=== PATIENT | male | born 1940 | race Caucasian/White ===

== ENCOUNTER 2024-05-12 16:08 | Observation (INO) | payer OTHER ==
[~2024-05-12] VITALS: Ht 177.8 cm; Wt 90.7 kg
[~2024-05-12 16:08] MED LIST: ASPI325 PO; ASPI81EC PO; CENTRUM SILVER1 EAC2 PO; LISINOPRIL PO; LOSA50 PO; METFORMIN HCL1000 MG PO; NIAC500 PO; OMEG1CAP30 PO; Pravastatin Sod40 MG PO; SIMV10 PO; VIT1CAPS12
[2024-05-12] MEDS ORDERED: FUROSEMIDE20 MG PO (16:34)
[2024-05-12] MEDS ORDERED: KLOR-CON 1010 ME9 PO (16:35)
[2024-05-12] MEDS ORDERED: EZET10 PO (16:37)
[2024-05-12] MEDS ORDERED: ELIQUIS2.5 MG PO (16:37)
[2024-05-12 16:53] LABS: BASOPHILS ABSOLUTE AUTO 0.06 K/mm3 (0.00-0.23); BASOPHILS PERCENT AUTO 1 % (0-2); EOSINOPHILS ABSOLUTE AUTO 0.51 K/mm3 (0.00-0.68); EOSINOPHILS PERCENT AUTO 5 % (0-6); Hematocrit 40.3 % (37.0-53.0); Hemoglobin 12.9 g/dL (13.5-17.5); IMMATURE GRAN ABSOLUTE AUTO 0.03 K/mm3 (0.00-0.10); IMMATURE GRAN PERCENT AUTO 0 % (0-1); LYMPHOCYTES ABSOLUTE AUTO 3.42 K/mm3 (0.84-5.20); LYMPHOCYTES PERCENT AUTO 32 % (21-46); MONOCYTES ABSOLUTE AUTO 0.82 K/mm3 (0.16-1.47); MONOCYTES PERCENT AUTO 8 % (4-13); Mean Corpuscular HGB 31.6 pg (26.0-34.0); Mean Corpuscular Volume 99 fL (80-100); Mean Platelet Volume 11.5 fL (9.1-12.4); NEUTROPHILS PERCENT AUTO 54 % (41-73); Platelet Count 268 K/mm3 (150-400); RDW Coefficient Variation 14.6 % (11.7-14.2); RDW Standard Deviation 52.6 fL (35.1-46.3); Red Blood Cell Count 4.08 M/mm3 (4.30-5.90); White Blood Cell Count 10.54 K/mm3 (4.00-11.30)
[2024-05-12 17:24] LABS: Albumin, Blood 3.5 g/dL (3.4-5.0); Albumin/Globulin Ratio 0.9 (0.8-1.8); Bilirubin, Total 0.4 mg/dL (0.1-1.0); Bun/Creatinine Ratio 27.1 (12.0-20.0); Calcium, Blood 9.6 mg/dL (8.5-10.1); Creatinine, Blood 1.44 mg/dL (0.60-1.20); Globulin, Blood 3.9 g/dL (2.2-4.0); Potassium, Blood 4.7 mmol/L (3.5-5.5); Total Protein, Blood 7.4 g/dL (6.4-8.2)
[2024-05-12] MEDS ORDERED: Ondansetron 4 MG TAB PO PRN (19:35)
[2024-05-12] MEDS ORDERED: FLU VACC TS2024-25(6MOS UP)/PF 45 MCG/0.5 ML SYRINGE IM SCH (19:35)
[2024-05-12 21:50] LABS: C-REACTIVE PROTEIN, EXT RANGE 0.74 mg/dL (0.000-0.300)
[2024-05-12 21:59] LABS: Thyroid Stimulating Hormone 2.01 uIU/mL (0.360-4.800)
[2024-05-12] MEDS ORDERED: Insulin Regular 100 UNIT/ML 10ML Vial SC SCH (22:00)
[2024-05-12 22:43] VITALS: BP 145/66
--- NOTE | 2024-05-12 22:58 | NUR ---
PATIENT IS A NEW ADMIT FROM THE ED. ALERT ORIENTED AND SBA FROM W/C TO [facility]. DENIES CHEST PAIN AND N/V. SOB WITH EXERTION. STATING 97% ON ROOM AIR ON CONTINUOUS PULSE OXIMETRY. HR CORRINE IN THE THIRTIES (32-42) AT THIS TIME AND SAME IN ED PER ED RN. ASYMPTOMATIC. CB. ORIENTED TO ROOM AND CALL LIGHT SYSTEM. REPORTS WANTS TO WATCH TV AFTER ASSESSMENT. WCTM.
--- NOTE | 2024-05-13 00:46 | NUR ---
YARD SPOTTER REPORTS PATIENT AFLUTTER 35-38 CURRENTLY AND DROPPED TO 32 AND BACK UP. WILL CALL IF SUSTAINED < HR 32. WCTM.
--- NOTE | 2024-05-13 00:47 | NUR ---
CARDIOLOGY CONSULT CALLED INTO ANSWERING SERVICE. DR EZ PATEL ([facility]) ADVERTISING REP FOR MORNING.
--- NOTE | 2024-05-13 04:13 | NUR ---
SHIFT SUMMARY PATIENT HR DROP TO 27 X ONE FOR 1-2 SEC AND BACK TO MID 30'S PER PATIENT ACCOUNT REPRESENTATIVE. TELE MONITOR REPORTS AFLUTTER 32-42 WITH MOSTLY MID THIRTIES HR. STATING 94-97% ROOM AIR ON CONTINUOUS PULSE OXIMETRY. DENIES CHEST PAIN AND N/V. SOB WITH EXERTION. AFEBRILE. SLEPT AFTER ASSESSMENT AND SOME TV. CALL LIGHT IN REACH. BED IN LOWEST POSITION. WILL CONTINUE TO MONITOR UNTIL DAY SHIFT NURSE ASSUMES CARE.
[2024-05-13 05:04] LABS: BASOPHILS ABSOLUTE AUTO 0.07 K/mm3 (0.00-0.23); BASOPHILS PERCENT AUTO 1 % (0-2); EOSINOPHILS ABSOLUTE AUTO 0.51 K/mm3 (0.00-0.68); EOSINOPHILS PERCENT AUTO 6 % (0-6); Hematocrit 34.9 % (37.0-53.0); Hemoglobin 11.4 g/dL (13.5-17.5); IMMATURE GRAN ABSOLUTE AUTO 0.02 K/mm3 (0.00-0.10); IMMATURE GRAN PERCENT AUTO 0 % (0-1); LYMPHOCYTES ABSOLUTE AUTO 2.59 K/mm3 (0.84-5.20); LYMPHOCYTES PERCENT AUTO 30 % (21-46); MONOCYTES ABSOLUTE AUTO 0.78 K/mm3 (0.16-1.47); MONOCYTES PERCENT AUTO 9 % (4-13); Mean Corpuscular HGB 31.9 pg (26.0-34.0); Mean Corpuscular HGB Conc 32.7 g/dL (31.5-36.5); Mean Corpuscular Volume 98 fL (80-100); Mean Platelet Volume 11.4 fL (9.1-12.4); NEUTROPHILS ABSOLUTE AUTO 4.61 K/mm3 (1.96-9.15); NEUTROPHILS PERCENT AUTO 54 % (41-73); Platelet Count 223 K/mm3 (150-400); RDW Coefficient Variation 14.6 % (11.7-14.2); RDW Standard Deviation 52.8 fL (35.1-46.3); Red Blood Cell Count 3.57 M/mm3 (4.30-5.90); White Blood Cell Count 8.58 K/mm3 (4.00-11.30)
[2024-05-13 05:08] VITALS: BP 115/67
[2024-05-13 05:33] LABS: Albumin, Blood 2.9 g/dL (3.4-5.0); Albumin/Globulin Ratio 0.9 (0.8-1.8); Bilirubin, Total 0.4 mg/dL (0.1-1.0); Bun/Creatinine Ratio 27.9 (12.0-20.0); Calcium, Blood 8.9 mg/dL (8.5-10.1); Creatinine, Blood 1.36 mg/dL (0.60-1.20); Globulin, Blood 3.1 g/dL (2.2-4.0); Potassium, Blood 4.2 mmol/L (3.5-5.5)
--- NOTE | 2024-05-13 05:45 | NUR ---
PILING SETTER REPORTS POSSIBLE RUN OF V-TACH BUT NOT SURE WITH A FEW LEADS OFF. LEADS REPLACED. BACK TO A-FLUTTER 38. WCTM.
--- NOTE | 2024-05-13 06:07 | NUR ---
TEA BAG MACHINE TENDER REPORTS A-FLUTTER 30 FOR 20 SECONDS AND BACK TO A-FLUTTER 37. PATIENT RESTING IN BED. ASYMPTOMATIC. TM.
[2024-05-13 07:33] VITALS: BP 123/70
[2024-05-13] MEDS ORDERED: Apixaban 5 MG Tab PO SCH ×2 (09:00→21:00)
[2024-05-13] MEDS ORDERED: Ezetimibe 10 MG Tab PO SCH (09:00)
[2024-05-13] MEDS ORDERED: Aspirin 81 MG TabEC PO SCH (09:00)
[2024-05-13] MEDS ORDERED: Enoxaparin 40 MG/0.4 ML SYR SC SCH (09:00)
[2024-05-13] MEDS ORDERED: Losartan Potassium 50 MG Tab PO SCH (09:00)
[2024-05-13] MEDS ORDERED: Apixaban 5 MG Tab PO ONE (10:25)
[2024-05-13 15:08] VITALS: BP 142/81
--- NOTE | 2024-05-13 18:23 | NUR ---
SHIFT SUMMARY PT CONT LEVEL OF CARE. PT NOTED TO BE A&O X4 AND SBA TO RESTROOM. PT CONT WITH TELE NOTED TO BE A FLUTTER WITH HR IN MID 30S. PT NOTED TO BE ASYMPTOMATIC AND DENIES CP, DIZZINESS. PT DOES STATE THAT HE IS SOB WITH EXERTION BUT ITS BEEN GOING ON FOR SEVERAL YEARS. CARDIOLOIST NOTED TO SEE PT THIS SHIFT. PT IS TO HAVE A 2 DAY STRESS TEST COMPLETED. PT HAS COMPLETED DAY ONE BUT WILL FINISH WITH DAY 2 TOMORROW AND IS TO BE NPO AFTER MIDNIGHT BUT HOLD PT BREAKFAST TRAY HE WILL NEED TO EAT AFTER BEING SEEN IN THE [facility] PT IS ALLOWED TO DRINK WATER ONLY AFTER MIDNIGHT. DIRECTOR OPERATING STATED THAT PT WILL LIKELY NEED A PACEMAKER BUT IT CAN BE PLACED OUTPATIENT PT IS ASYMPTOMATIC AT THIS TIME. HE WILL ALSO POSSIBLE DC ON ZIO PATCH.
[2024-05-13 19:37] VITALS: BP 158/76
[2024-05-14 00:13] VITALS: BP 122/62
[2024-05-14 04:59] LABS: BASOPHILS ABSOLUTE AUTO 0.06 K/mm3 (0.00-0.23); BASOPHILS PERCENT AUTO 1 % (0-2); EOSINOPHILS ABSOLUTE AUTO 0.68 K/mm3 (0.00-0.68); EOSINOPHILS PERCENT AUTO 6 % (0-6); Hemoglobin 12.7 g/dL (13.5-17.5); IMMATURE GRAN ABSOLUTE AUTO 0.02 K/mm3 (0.00-0.10); IMMATURE GRAN PERCENT AUTO 0 % (0-1); LYMPHOCYTES ABSOLUTE AUTO 3.55 K/mm3 (0.84-5.20); LYMPHOCYTES PERCENT AUTO 33 % (21-46); MONOCYTES ABSOLUTE AUTO 0.85 K/mm3 (0.16-1.47); MONOCYTES PERCENT AUTO 8 % (4-13); Mean Corpuscular HGB 31.4 pg (26.0-34.0); Mean Corpuscular HGB Conc 32.6 g/dL (31.5-36.5); Mean Corpuscular Volume 97 fL (80-100); Mean Platelet Volume 11.3 fL (9.1-12.4); NEUTROPHILS ABSOLUTE AUTO 5.64 K/mm3 (1.96-9.15); NEUTROPHILS PERCENT AUTO 52 % (41-73); Platelet Count 247 K/mm3 (150-400); RDW Coefficient Variation 14.6 % (11.7-14.2); RDW Standard Deviation 51.1 fL (35.1-46.3); Red Blood Cell Count 4.04 M/mm3 (4.30-5.90)
[2024-05-14 05:13] VITALS: BP 131/71
[2024-05-14 05:18] LABS: Bun/Creatinine Ratio 27.5 (12.0-20.0); Calcium, Blood 9.2 mg/dL (8.5-10.1); Creatinine, Blood 1.31 mg/dL (0.60-1.20); Magnesium, Blood 2.2 mg/dL (1.6-2.4); Potassium, Blood 4.3 mmol/L (3.5-5.5)
--- NOTE | 2024-05-14 05:42 | NUR ---
Shift Summary Pt NPO since 0000 in anticipation for stress test today. On tele running aflutter 30-50. He did have a 15 run beat of vtach around 0500 while in bed, asymptomatic. 1 SBA to the BR. No c/o of discomfort or pain. AOx4, slept well t/o most of the night.
[2024-05-14] MEDS ORDERED: Regadenoson 0.4 MG/5 ML SYRINGE ONE (07:13)
[2024-05-14 07:33] VITALS: BP 128/66
[2024-05-14 11:22] VITALS: BP 121/70
--- NOTE | 2024-05-14 15:24 | NUR ---
PT DISCHARGED 1330 WITH DC INSTRUCTIONS. ZIO PATCH PLACED PRIOR TO DC. PT'S HR REMAINS 36-48 A FLUTTER, DENIES ANY DIZZINESS THIS SHIFT. COMPLETED 2ND PORTION OF STRESS TEST- SHOWING NO ACUTE CARDIAC CONCERNS, PT TO FOLLOWUP WITH CARDIC OUTPATIIENT TO ADDRESS HEART RATE. WHEELCHAIR OUT TO CAR FOR DC
[2024-05-16 23:22] LABS: ALBUMIN 3.46 g/dL (3.75-5.01); ALPHA 1 GLOBULIN 0.32 g/dL (0.19-0.46); ALPHA 2 GLOBULIN 0.76 g/dL (0.48-1.05); BETA GLOBULIN 0.76 g/dL (0.48-1.10); GAMMA 0.91 g/dL (0.62-1.51); IMMUNOFIXATION IFE Done; TOTAL PROTEIN, SERUM 6.2 g/dL (6.3-8.2)
== END 2024-05-14 13:32 | disposition home or self-care (01) ==
LOC: ER 16:08 → SURS 16:09 → MEDS 16:09
PROVIDERS: Emergency Medicine; Student in an Organized Health Care Education/Training Program; ADMIT Student in an Organized Health Care Education/Training Program
DX: R00.1 Bradycardia, unspecified (principal); E78.1 Pure hyperglyceridemia; I48.92 Unspecified atrial flutter; I13.0 Hypertensive heart and chronic kidney disease with heart failure and stage 1 through stage 4 chronic kidney disease, or unspecified chronic kidney disease; E11.22 Type 2 diabetes mellitus with diabetic chronic kidney disease; N18.30 Chronic kidney disease, stage 3 unspecified; I50.32 Chronic diastolic (congestive) heart failure; M25.462 Effusion, left knee; J98.4 Other disorders of lung; Z85.46 Personal history of malignant neoplasm of prostate; Z79.899 Other long term (current) drug therapy; Z79.01 Long term (current) use of anticoagulants; Z79.84 Long term (current) use of oral hypoglycemic drugs
CPT/HCPCS: 36415; 71045; 73560-LT; 78452; 80048; 80053; 82947; 83735; 83880; 84145; 84155; 84165; 84443; 84484; 85025; 86140; 86334; 93005; 93010; 93017; 93246; 99285-25; A9270; A9500; G0378; J1815; J2785

== ENCOUNTER 2024-06-17 14:11 | Emergency (ER) | payer OTHER ==
[~2024-06-17] VITALS: Ht 177.8 cm; Wt 90.7 kg
[~2024-06-17 14:11] MED LIST changes: +ELIQUIS2.5 MG PO; +EZET10 PO; +FUROSEMIDE20 MG PO; +KLOR-CON 1010 ME9 PO
[2024-06-17 14:59] LABS: BASOPHILS ABSOLUTE AUTO 0.07 K/mm3 (0.00-0.23); BASOPHILS PERCENT AUTO 1 % (0-2); EOSINOPHILS ABSOLUTE AUTO 0.23 K/mm3 (0.00-0.68); EOSINOPHILS PERCENT AUTO 3 % (0-6); Hematocrit 39.7 % (37.0-53.0); Hemoglobin 12.8 g/dL (13.5-17.5); IMMATURE GRAN ABSOLUTE AUTO 0.02 K/mm3 (0.00-0.10); IMMATURE GRAN PERCENT AUTO 0 % (0-1); LYMPHOCYTES ABSOLUTE AUTO 2.06 K/mm3 (0.84-5.20); LYMPHOCYTES PERCENT AUTO 25 % (21-46); MONOCYTES ABSOLUTE AUTO 0.73 K/mm3 (0.16-1.47); MONOCYTES PERCENT AUTO 9 % (4-13); Mean Corpuscular HGB 31.6 pg (26.0-34.0); Mean Corpuscular HGB Conc 32.2 g/dL (31.5-36.5); Mean Corpuscular Volume 98 fL (80-100); Mean Platelet Volume 11.2 fL (9.1-12.4); NEUTROPHILS ABSOLUTE AUTO 5.17 K/mm3 (1.96-9.15); NEUTROPHILS PERCENT AUTO 63 % (41-73); Platelet Count 249 K/mm3 (150-400); RDW Coefficient Variation 15.3 % (11.7-14.2); RDW Standard Deviation 55.2 fL (35.1-46.3); Red Blood Cell Count 4.05 M/mm3 (4.30-5.90); White Blood Cell Count 8.28 K/mm3 (4.00-11.30)
[2024-06-17 15:28] LABS: Albumin, Blood 3.5 g/dL (3.4-5.0); Bilirubin, Total 0.7 mg/dL (0.1-1.0); Calcium, Blood 9.6 mg/dL (8.5-10.1); Creatinine, Blood 1.39 mg/dL (0.60-1.20); Globulin, Blood 3.4 g/dL (2.2-4.0); Total Protein, Blood 6.9 g/dL (6.4-8.2)
[2024-06-17] MEDS ORDERED: OMEP20ER PO (15:34)
[2024-06-17] MEDS ORDERED: ELIQUIS5 M2 PO (15:45)
[2024-06-17] MEDS ORDERED: GABA300 PO (15:46)
[2024-06-17] MEDS ORDERED: CALCIUM 500-VI1 EAC4 PO (15:47)
[2024-06-17] MEDS ORDERED: Ondansetron 4 MG SoluTab SL ONE (17:05)
[2024-06-17 20:30] VITALS: BP 161/93
[2024-06-17] MEDS ORDERED: Amiodarone HCl 50 MG / ML 3 ML Amp IV ONE (21:07)
== END 2024-06-17 20:50 | disposition short-term general hospital (02) ==
LOC: ER 14:11
PROVIDERS: Emergency Medicine
DX: I49.01 Ventricular fibrillation (principal); R00.1 Bradycardia, unspecified; Z88.8 Allergy status to other drugs, medicaments and biological substances; Z79.82 Long term (current) use of aspirin; Z79.01 Long term (current) use of anticoagulants; Z79.84 Long term (current) use of oral hypoglycemic drugs; E11.9 Type 2 diabetes mellitus without complications; I10 Essential (primary) hypertension
CPT/HCPCS: 36556; 71045; 80053; 84484; 85025; 93005; 93010; 96365-59; 96366-59; 99285-25; A9270; C1751; J0282; J7060